=== PATIENT | female | born 1960 | race Caucasian/White ===

== ENCOUNTER 2018-05-01 15:17 | Emergency (ER) | payer OTHER ==
[2018-05-01] MEDS: IBUPROFEN 600 MG TAB PO (16:51)
== END 2018-05-01 17:14 | disposition home or self-care (01) ==
LOC: FTE 15:17
DX: J06.9 Acute upper respiratory infection, unspecified (principal)
CPT/HCPCS: 99284; Z7610

== ENCOUNTER 2019-01-16 10:52 | Emergency (ER) | payer OTHER | END 2019-01-16 16:37 | disposition home or self-care (01) | LOC: FTE 10:52 | DX: J02.9 Acute pharyngitis, unspecified (principal) | CPT/HCPCS: 99283; Z7502 ==